=== PATIENT | male | born 1980 | race Caucasian/White ===

== ENCOUNTER 2017-08-11 15:14 | Emergency (ER) | payer OTHER ==
[2017-08-11] MEDS: KETOROLAC TROMETHAMINE 10 MG TAB PO (16:27)
[2017-08-11] MEDS: BACLOFEN 10 MG TAB PO (16:27)
[2017-08-11] MEDS: PERCOCET 5MG/325MG TAB PO (17:27)
== END 2017-08-11 18:09 | disposition home or self-care (01) ==
LOC: M ED 15:14
DX: S39.012A Strain of muscle, fascia and tendon of lower back, initial encounter (principal); X58.XXXA Exposure to other specified factors, initial encounter; Y92.89 Other specified places as the place of occurrence of the external cause; I10 Essential (primary) hypertension; K21.9 Gastro-esophageal reflux disease without esophagitis; Z88.0 Allergy status to penicillin; Z88.1 Allergy status to other antibiotic agents; Z91.040 Latex allergy status; Z91.048 Other nonmedicinal substance allergy status; F17.210 Nicotine dependence, cigarettes, uncomplicated; Z79.899 Other long term (current) drug therapy
CPT/HCPCS: 99283

== ENCOUNTER 2017-10-06 11:56 | Emergency (ER) | payer OTHER ==
[2017-10-06] MEDS: PERCOCET 5MG/325MG TAB PO (12:37)
== END 2017-10-06 14:19 | disposition home or self-care (01) ==
LOC: M ED 11:56
DX: S62.640A Nondisplaced fracture of proximal phalanx of right index finger, initial encounter for closed fracture (principal); Y04.0XXA Assault by unarmed brawl or fight, initial encounter; Y92.89 Other specified places as the place of occurrence of the external cause; Z87.81 Personal history of (healed) traumatic fracture; F17.200 Nicotine dependence, unspecified, uncomplicated
CPT/HCPCS: 73130

== ENCOUNTER 2017-10-22 00:40 | Emergency (ER) | payer OTHER | END 2017-10-22 01:48 | disposition home or self-care (01) | LOC: M ED 00:40 | DX: Z46.89 Encounter for fitting and adjustment of other specified devices (principal); I10 Essential (primary) hypertension; J45.909 Unspecified asthma, uncomplicated; K21.9 Gastro-esophageal reflux disease without esophagitis; F17.210 Nicotine dependence, cigarettes, uncomplicated; Z88.1 Allergy status to other antibiotic agents; Z88.5 Allergy status to narcotic agent; Z88.0 Allergy status to penicillin; Z91.048 Other nonmedicinal substance allergy status; Z88.8 Allergy status to other drugs, medicaments and biological substances; Z79.899 Other long term (current) drug therapy | CPT/HCPCS: 99284 ==

== ENCOUNTER 2017-10-28 17:29 | Emergency (ER) | payer OTHER ==
[2017-10-28] MEDS: NORCO 5/325MG TABLET (BULK FOR ED) PO ×2 (20:45→20:46)
== END 2017-10-28 20:57 | disposition home or self-care (01) ==
LOC: M ED 17:29
DX: S60.221A Contusion of right hand, initial encounter (principal); W19.XXXA Unspecified fall, initial encounter; Y92.099 Unspecified place in other non-institutional residence as the place of occurrence of the external cause; Y93.9 Activity, unspecified; Y99.9 Unspecified external cause status; Z96.9 Presence of functional implant, unspecified; I10 Essential (primary) hypertension; K21.9 Gastro-esophageal reflux disease without esophagitis; J45.909 Unspecified asthma, uncomplicated; Z79.899 Other long term (current) drug therapy; Z88.5 Allergy status to narcotic agent; Z88.0 Allergy status to penicillin; Z88.8 Allergy status to other drugs, medicaments and biological substances; Z91.89 Other specified personal risk factors, not elsewhere classified; Z91.040 Latex allergy status
CPT/HCPCS: 73130

== ENCOUNTER 2017-10-31 14:01 | Emergency (ER) | payer OTHER | END 2017-10-31 15:24 | disposition home or self-care (01) | LOC: M ED 14:01 | DX: G89.18 Other acute postprocedural pain (principal); I10 Essential (primary) hypertension; J45.909 Unspecified asthma, uncomplicated; K21.9 Gastro-esophageal reflux disease without esophagitis; Z88.8 Allergy status to other drugs, medicaments and biological substances; Z88.1 Allergy status to other antibiotic agents; Z88.5 Allergy status to narcotic agent; Z88.0 Allergy status to penicillin; Z91.040 Latex allergy status; Z91.048 Other nonmedicinal substance allergy status; Z79.899 Other long term (current) drug therapy | CPT/HCPCS: 99282 ==

== ENCOUNTER 2017-11-05 14:24 | Emergency (ER) | payer OTHER | END 2017-11-05 17:21 | disposition home or self-care (01) | LOC: M ED 14:24 | DX: S62.610A Displaced fracture of proximal phalanx of right index finger, initial encounter for closed fracture (principal); S62.604A Fracture of unspecified phalanx of right ring finger, initial encounter for closed fracture; Y04.8XXA Assault by other bodily force, initial encounter; Y92.018 Other place in single-family (private) house as the place of occurrence of the external cause; I10 Essential (primary) hypertension; J45.909 Unspecified asthma, uncomplicated | CPT/HCPCS: 99283 ==

== ENCOUNTER 2017-11-07 18:09 | Emergency (ER) | payer OTHER | END 2017-11-07 19:42 | disposition left against medical advice (07) | LOC: M ED 18:09 | DX: Z53.29 Procedure and treatment not carried out because of patient's decision for other reasons (principal) ==

== ENCOUNTER → 2017-12-01 | Outpatient (CLI) | payer OTHER ==
[2017-12-01 13:02] LABS: HEMATOCRIT 45.8 % (42.0-52.0); HEMOGLOBIN 15.5 g/dl (13.5-17.5); MEAN CORPUSCULAR HEMOGLOBIN 29.8 pg (27.0-33.0); MEAN CORPUSCULAR HGB CONC 33.8 g/dl (32.0-36.5); MEAN CORPUSCULAR VOLUME 87.9 fl (80.0-96.0); PLATELET COUNT, AUTOMATED 363 10^3/uL (150-450); RED BLOOD COUNT 5.21 10^6/uL (4.30-6.10); RED CELL DISTRIBUTION WIDTH 14.5 % (11.5-14.5); WHITE BLOOD COUNT 8.8 10^3/uL (4.0-10.0)
[2017-12-01 14:02] LABS: ALBUMIN 3.7 GM/DL (3.2-5.2); ALBUMIN/GLOBULIN RATIO 1.06 (1.00-1.93); ALKALINE PHOSPHATASE 97 U/L (45-117); ALT/SGPT 44 U/L (12-78); ANION GAP 6 MEQ/L (8-16); AST/SGOT 22 U/L (7-37); BILIRUBIN,TOTAL 0.1 MG/DL (0.2-1.0); BLOOD UREA NITROGEN 13 MG/DL (7-18); CALCIUM LEVEL 8.7 MG/DL (8.5-10.1); CARBON DIOXIDE LEVEL 29 MEQ/L (21-32); CHLORIDE LEVEL 104 MEQ/L (98-107); CHOLESTEROL LEVEL 220 MG/DL (<200); CHOLESTEROL RISK RATIO 7.586 (<5); CREATININE FOR GFR 1.09 MG/DL (0.70-1.30); GLOMERULAR FILTRATION RATE > 60.0 (>60); GLUCOSE, FASTING 107 MG/DL (70-100); HDL CHOLESTEROL 29 MG/DL (>40); NON-HDL-C 191 MG/DL; POTASSIUM SERUM 4.9 MEQ/L (3.5-5.1); SODIUM LEVEL 139 MEQ/L (136-145); TOTAL PROTEIN 7.2 GM/DL (6.4-8.2); TRIGLYCERIDES LEVEL 461 MG/DL (<150)
[2017-12-01 14:29] LABS: TOTAL 25(OH) VITAMIN D 12.2 NG/ML (30.0-100.0)
[2017-12-01 16:24] LABS: ESTIMATED AVERAGE GLUCOSE 131 MG/DL (60-110); HEMOGLOBIN A1c 6.2 %
== END ==
LOC: M LAB 11:45
DX: R53.83 Other fatigue (principal); E03.9 Hypothyroidism, unspecified; I10 Essential (primary) hypertension
CPT/HCPCS: 84443

== ENCOUNTER → 2017-12-13 | Outpatient (CLI) | payer OTHER | LOC: M RAD 16:18 | DX: S69.91XA Unspecified injury of right wrist, hand and finger(s), initial encounter (principal); X58.XXXA Exposure to other specified factors, initial encounter; Y92.89 Other specified places as the place of occurrence of the external cause; Z87.81 Personal history of (healed) traumatic fracture | CPT/HCPCS: 73130 ==

== ENCOUNTER 2018-05-10 13:54 | Emergency (ER) | payer OTHER | END 2018-05-10 14:50 | disposition home or self-care (01) | LOC: M ED 13:54 | DX: S02.5XXA Fracture of tooth (traumatic), initial encounter for closed fracture (principal); X58.XXXA Exposure to other specified factors, initial encounter; Y92.9 Unspecified place or not applicable; Y93.89 Activity, other specified; Y99.9 Unspecified external cause status; K21.9 Gastro-esophageal reflux disease without esophagitis; M54.9 Dorsalgia, unspecified; J45.909 Unspecified asthma, uncomplicated; I10 Essential (primary) hypertension; Z79.899 Other long term (current) drug therapy; Z88.1 Allergy status to other antibiotic agents; Z88.5 Allergy status to narcotic agent; Z88.0 Allergy status to penicillin; Z88.8 Allergy status to other drugs, medicaments and biological substances; Z91.89 Other specified personal risk factors, not elsewhere classified | CPT/HCPCS: 99282 ==

== ENCOUNTER 2018-07-17 15:47 | Emergency (ER) | payer OTHER ==
[~2018-07-17] VITALS: Ht 182.9 cm; Wt 90.9 kg
[~2018-07-17 15:47] MED LIST: /ESOM40CA OR; ADDE10CA3 OR; AMLO10TA5 PO; CATA0.1T OR; CIPR0.3S OU; CLEO300C2 PO; COMBAER6 INH; CYCL10TA PO; EXCETAB80 PO; IBUP-1114 PO; IBUP-359 PO; KEFL500C17 PO; LOPR1TAB6 PO; MAGICMW MT; NORCOTAB PO; OMEP20CA3; OMEP40CA2 PO; OXYC1TAB23 PO; PERC5TAB12 PO; PERCOCET PO; PROBCAP4 PO; TRAM50TA2 OR; VITA100067 PO; ZITHTAB PO
[2018-07-17 15:50] VITALS: BP 152/99
[2018-07-17] MEDS ORDERED: OXAY1TAB (15:57)
[2018-07-17] MEDS ORDERED: ADDE20CA3 PO (15:57)
[2018-07-17] MEDS ORDERED: METO1TAB32 (15:58)
[2018-07-17] MEDS ORDERED: FLAG500T PO (16:20)
== END 2018-07-17 16:30 | disposition home or self-care (01) ==
LOC: M ED 15:47
DX: S02.5XXA Fracture of tooth (traumatic), initial encounter for closed fracture (principal); X58.XXXA Exposure to other specified factors, initial encounter; Y92.89 Other specified places as the place of occurrence of the external cause

== ENCOUNTER 2018-10-05 17:33 | Emergency (ER) | payer OTHER, SELFPAY ==
[~2018-10-05] VITALS: Ht 182.9 cm; Wt 90.9 kg
[~2018-10-05 17:33] MED LIST changes: -/ESOM40CA OR; +ADDE20CA3 PO; +FLAG500T PO; +HYDR-3715 PO; +METO1TAB32; +NEXI1CAP3 OR; -NORCOTAB PO; +OXAY1TAB
[2018-10-05 17:34] VITALS: BP 153/102
[2018-10-05] MEDS ORDERED: HYDR-4517 PO (18:06)
[2018-10-05] MEDS ORDERED: CLONI1TA PO (18:10)
[2018-10-05] MEDS ORDERED: KETO10TAB PO (18:10)
--- NOTE | 2018-10-05 19:01 | REP ---
Left hand series: Four views. History: Injury. Suspect glass. Findings: Four views of the left hand demonstrate a shard like foreign body in the superficial soft tissues at the ulnar aspect of the fifth MCP joint. This measures 5 mm in greatest diameter and is compatible with a shard of glass. No soft tissue gas is seen. No acute fracture is noted. There is an old healed boxer's fracture of the fifth metacarpal. A small exostosis is seen arising from the volar aspect of the proximal end of the second metacarpal. There is a small subcortical cyst in the distal end of the third metacarpal. Impression: 5 mm shard like opaque foreign body at the ulnar aspect of the fifth MCP joint consistent with a shard of glass. No fracture seen. Electronically Signed by Kraig Vázquez MD 10/05/2018 07:10 P
== END 2018-10-05 20:00 | disposition left against medical advice (07) ==
LOC: M ED 17:33
DX: S60.552A Superficial foreign body of left hand, initial encounter (principal); X58.XXXA Exposure to other specified factors, initial encounter; Y92.9 Unspecified place or not applicable; Y93.9 Activity, unspecified; Y99.9 Unspecified external cause status; Z53.21 Procedure and treatment not carried out due to patient leaving prior to being seen by health care provider

== ENCOUNTER → 2019-07-17 | Outpatient (CLI) | payer MEDICAID ==
[~2019-07-17] MED LIST changes: +CLONI1TA PO; +HYDR-4517 PO; +KETO10TAB PO; +OMEP1CAP73; -OMEP20CA3; -OMEP40CA2 PO; +OMEP40CA97 PO
== END ==
LOC: M WUC 17:05
PROVIDERS: ATTEND Psychiatry & Neurology Addiction Medicine
DX: F15.20 Other stimulant dependence, uncomplicated (principal); F12.10 Cannabis abuse, uncomplicated

== ENCOUNTER → 2019-07-17 | Outpatient (CLI) | payer MEDICAID | LOC: M OUTALCOH 07:58 | PROVIDERS: ATTEND Psychiatry & Neurology Addiction Medicine | DX: F15.20 Other stimulant dependence, uncomplicated (principal); F12.10 Cannabis abuse, uncomplicated ==

== ENCOUNTER 2019-07-25 02:11 | Emergency (ER) | payer MEDICAID, OTHER ==
[~2019-07-25] VITALS: Ht 182.9 cm; Wt 102.0 kg
[2019-07-25 02:24] VITALS: BP 160/106
[2019-07-25 02:40] LABS: HEMATOCRIT 48.9 % (42.0-52.0); MEAN CORPUSCULAR HEMOGLOBIN 27.9 pg (27.0-33.0); MEAN CORPUSCULAR HGB CONC 32.7 g/dl (32.0-36.5); MEAN CORPUSCULAR VOLUME 85.2 fl (80.0-96.0); PLATELET COUNT, AUTOMATED 374 10^3/uL (150-450); RED BLOOD COUNT 5.74 10^6/uL (4.30-6.10); WHITE BLOOD COUNT 10.2 10^3/uL (4.0-10.0)
[2019-07-25] MEDS ORDERED: OMEP-221 (02:46)
[2019-07-25] MEDS ORDERED: GI COCKTAIL 50ML BTL(HYOSCYAMINE/MAALOX/LIDOCAINE VISCOUS)(1:3:1) PO ONE (03:00)
[2019-07-25 03:05] LABS: AMPHETAMINES LEVEL URINE POSITIVE (NEGATIVE); BARBITURATES URINE NEGATIVE (NEGATIVE); BENZODIAZEPINES URINE NEGATIVE (NEGATIVE); CANNABINOIDS URINE POSITIVE (NEGATIVE); COCAINE METABOLITE URINE NEGATIVE (NEGATIVE); METHADONE URINE NEGATIVE (NEGATIVE); OPIATES URINE NEGATIVE (NEGATIVE); PHENCYCLIDINE URINE NEGATIVE (NEGATIVE)
[2019-07-25 03:30] LABS: ACETAMINOPHEN LEVEL < 2.0 UG/ML (10.0-30.0); ALBUMIN 4.1 GM/DL (3.2-5.2); ALT/SGPT 45 U/L (12-78); BILIRUBIN,DIRECT 0.2 MG/DL (0.0-0.2); BILIRUBIN,TOTAL 0.5 MG/DL (0.2-1.0); BLOOD UREA NITROGEN 15 MG/DL (7-18); CALCIUM LEVEL 8.9 MG/DL (8.5-10.1); CARBON DIOXIDE LEVEL 26 MEQ/L (21-32); CHLORIDE LEVEL 110 MEQ/L (98-107); CREATININE FOR GFR 1.09 MG/DL (0.70-1.30); ETHYL ALCOHOL (ETHANOL) < 0.003 % (0.000-0.010); GLOMERULAR FILTRATION RATE > 60.0 (>60); GLUCOSE, FASTING 99 MG/DL (70-100); POTASSIUM SERUM 4.2 MEQ/L (3.5-5.1); SALICYLATE LEVEL 3.3 MG/DL (5.0-30.0); SODIUM LEVEL 142 MEQ/L (136-145); THYROID STIMULATING HORMONE 0.393 uIU/ML (0.358-3.740); TOTAL PROTEIN 7.4 GM/DL (6.4-8.2)
== END 2019-07-25 03:45 | disposition home or self-care (01) ==
LOC: M ED 02:11
DX: Z60.9 Problem related to social environment, unspecified (principal); F15.10 Other stimulant abuse, uncomplicated; I10 Essential (primary) hypertension; J45.909 Unspecified asthma, uncomplicated; K21.9 Gastro-esophageal reflux disease without esophagitis; Z79.899 Other long term (current) drug therapy; Z88.0 Allergy status to penicillin; Z88.1 Allergy status to other antibiotic agents; Z88.5 Allergy status to narcotic agent; Z91.040 Latex allergy status; Z91.048 Other nonmedicinal substance allergy status
CPT/HCPCS: 36415; 80048; 80076; 80307; 84443; 85027; 99284; G0480

== ENCOUNTER 2019-09-13 01:26 | Emergency (ER) | payer OTHER ==
[~2019-09-13] VITALS: Ht 182.9 cm; Wt 95.5 kg
[~2019-09-13 01:26] MED LIST changes: +CYCL-707 PO; -CYCL10TA PO; +OMEP-221
[2019-09-13] MEDS ORDERED: cloNIDine 0.1 MG TAB PO ONE (02:00)
[2019-09-13] MEDS ORDERED: METOPROLOL TART 25 MG TABLET PO ONE (02:15)
[2019-09-13] MEDS ORDERED: amLODIPine 10 MG TAB PO ONE (02:15)
--- NOTE | 2019-09-13 02:15 | REPVR ---
PROCEDURE INFORMATION: Exam: XR Left Ankle Exam date and time: 09/13/2019 2:08 AM Age: 39 years old Clinical indication: Other: Pain; Prior surgery; Surgery date: 6+ months TECHNIQUE: Imaging protocol: XR Left ankle. Views: 3 or more views. COMPARISON: No relevant prior studies available. FINDINGS: Bones/joints: Postoperative changes and orthopedic hardware in the talus. Hardware appears intact. No fracture or malalignment. Osteophyte formation in the posterior subtalar joint. Remaining joint spaces are unremarkable. No fracture or malalignment. Soft tissues: Unremarkable. IMPRESSION: 1. No fracture or malalignment. 2. Mild degenerative changes in the posterior subtalar joint and prior ORIF of the talus. Electronically signed by: Alvarez Bethea On 09/13/2019 02:15:09 AM
--- NOTE | 2019-09-13 02:17 | REPVR ---
PROCEDURE INFORMATION: Exam: XR Left Tibia and Fibula Exam date and time: 09/13/2019 2:08 AM Age: 39 years old Clinical indication: Other: Pain; Prior surgery TECHNIQUE: Imaging protocol: XR Left tibia and fibula. Views: 2 views. COMPARISON: No relevant prior studies available. FINDINGS: Bones/joints: No fracture or malalignment. Joint spaces are unremarkable. Postoperative changes in the talus. Hardware appears intact. Soft tissues: Normal. IMPRESSION: No fracture or malalignment. Electronically signed by: Alvarez Bethea On 09/13/2019 02:16:35 AM
[2019-09-13 02:32] VITALS: BP 184/118
[2019-09-13] MEDS ORDERED: IBUPROFEN 600 MG TAB PO ONE (03:00)
[2019-09-13 03:24] VITALS: BP 148/98
== END 2019-09-13 03:35 | disposition home or self-care (01) ==
LOC: M ED 01:26
DX: S93.402A Sprain of unspecified ligament of left ankle, initial encounter (principal); Y92.9 Unspecified place or not applicable; Y93.9 Activity, unspecified; J45.909 Unspecified asthma, uncomplicated; K21.9 Gastro-esophageal reflux disease without esophagitis; F17.200 Nicotine dependence, unspecified, uncomplicated; Z88.0 Allergy status to penicillin; Z88.1 Allergy status to other antibiotic agents; Z88.6 Allergy status to analgesic agent; Z88.8 Allergy status to other drugs, medicaments and biological substances; Z91.040 Latex allergy status; Z91.048 Other nonmedicinal substance allergy status

== ENCOUNTER → 2019-11-16 | Outpatient (CLI) | payer OTHER ==
[~2019-11-16] MED LIST changes: -AMLO10TA5 PO; +AMLO1TAB25 PO; -CIPR0.3S OU; +CIPR0.3S6 OU
[2019-11-16 14:34] LABS: HEMATOCRIT 45.5 % (42.0-52.0); HEMOGLOBIN 14.5 g/dl (13.5-17.5); MEAN CORPUSCULAR HEMOGLOBIN 27.8 pg (27.0-33.0); MEAN CORPUSCULAR HGB CONC 31.9 g/dl (32.0-36.5); MEAN CORPUSCULAR VOLUME 87.3 fl (80.0-96.0); PLATELET COUNT, AUTOMATED 355 10^3/uL (150-450); RED BLOOD COUNT 5.21 10^6/uL (4.30-6.10); WHITE BLOOD COUNT 9.8 10^3/uL (4.0-10.0)
[2019-11-16 14:45] LABS: HEMOGLOBIN A1c 6.7 %
[2019-11-16 14:54] LABS: ALBUMIN 3.7 GM/DL (3.2-5.2); ALT/SGPT 49 U/L (12-78); BILIRUBIN,TOTAL 0.3 MG/DL (0.2-1.0); BLOOD UREA NITROGEN 14 MG/DL (7-18); CALCIUM LEVEL 8.7 MG/DL (8.5-10.1); CARBON DIOXIDE LEVEL 26 MEQ/L (21-32); CHLORIDE LEVEL 107 MEQ/L (98-107); CHOLESTEROL LEVEL 182 MG/DL (<200); CHOLESTEROL RISK RATIO 4.918 (<5); CREATININE FOR GFR 1.27 MG/DL (0.70-1.30); FREE THYROXINE INDEX 2.2 % (1.4-3.8); GLOMERULAR FILTRATION RATE > 60.0 (>60); GLUCOSE, FASTING 106 MG/DL (70-100); HDL CHOLESTEROL 37 MG/DL (>40); LDL CHOLESTEROL 97 MG/DL (<100); NON-HDL-C 145 MG/DL; POTASSIUM SERUM 4.2 MEQ/L (3.5-5.1); SODIUM LEVEL 141 MEQ/L (136-145); T UPTAKE 33 % (33-40); THYROID STIMULATING HORMONE 0.581 uIU/ML (0.358-3.740); THYROXINE (T4) 6.6 UG/DL (4.5-12.0); TOTAL PROTEIN 6.7 GM/DL (6.4-8.2); TRIGLYCERIDES LEVEL 239 MG/DL (<150)
[2019-11-16 14:57] LABS: TOTAL 25(OH) VITAMIN D 22.1 NG/ML (30.0-100.0)
== END ==
LOC: M WUC 11:39
PROVIDERS: ATTEND Nurse Practitioner Psychiatric/Mental Health
DX: F41.9 Anxiety disorder, unspecified (principal)

== ENCOUNTER → 2020-01-11 | Outpatient (REF) | payer OTHER | LOC: M LAB REF 11:50 | PROVIDERS: ATTEND Physician Assistant | DX: L02.512 Cutaneous abscess of left hand (principal) ==

== ENCOUNTER 2021-07-29 18:11 | Emergency (ER) | payer OTHER, SELFPAY ==
[~2021-07-29] VITALS: Ht 182.9 cm; Wt 106.8 kg
[~2021-07-29 18:11] MED LIST changes: -OMEP-221; +OMEP40CA4 PO; +OMEP40CA5; -OMEP40CA97 PO
[2021-07-29 19:17] VITALS: BP 170/107
[2021-07-29] MEDS ORDERED: METO1TAB87 PO (19:29)
== END 2021-07-29 20:06 | disposition home or self-care (01) ==
LOC: M ED 18:11
DX: F43.0 Acute stress reaction (principal); I10 Essential (primary) hypertension; F32.A Depression, unspecified; J45.909 Unspecified asthma, uncomplicated; F17.200 Nicotine dependence, unspecified, uncomplicated; Z88.0 Allergy status to penicillin; Z88.1 Allergy status to other antibiotic agents; Z91.040 Latex allergy status; Z79.899 Other long term (current) drug therapy

== ENCOUNTER 2021-12-28 13:55 | Emergency (ER) | payer OTHER ==
[~2021-12-28] VITALS: Ht 182.9 cm; Wt 106.8 kg
[~2021-12-28 13:55] MED LIST changes: +METO1TAB87 PO
[2021-12-28] MEDS ORDERED: LORazepam 2 MG TAB PO STA (14:20)
[2021-12-28] MEDS ORDERED: ZOLO25TA PO (14:22)
[2021-12-28] MEDS ORDERED: NITROGLYCERIN 0.4 MG SUBL TABLET SL PRN (14:25)
[2021-12-28 14:27] LABS: BASO # 0.1 10^3/uL (0.0-0.2); BASO % 0.9 % (0.0-1.0); EOS # 0.3 10^3/uL (0.0-0.5); EOS % 2.8 % (0.0-3.0); HEMATOCRIT 48.6 % (42.0-52.0); HEMOGLOBIN 15.8 g/dl (13.5-17.5); LYMPH # 2.2 10^3/uL (1.5-5.0); LYMPH % 22.8 % (24.0-44.0); MEAN CORPUSCULAR HEMOGLOBIN 28.2 pg (27.0-33.0); MEAN CORPUSCULAR HGB CONC 32.5 g/dl (32.0-36.5); MEAN CORPUSCULAR VOLUME 86.6 fl (80.0-96.0); MONO # 0.7 10^3/uL (0.0-0.8); MONO % 7.7 % (2.0-8.0); NEUTROPHILS # 6.3 10^3/uL (1.5-8.5); NEUTROPHILS % 65.6 % (36.0-66.0); PLATELET COUNT, AUTOMATED 324 10^3/uL (150-450); RED BLOOD COUNT 5.61 10^6/uL (4.30-6.10); WHITE BLOOD COUNT 9.6 10^3/uL (4.0-10.0)
[2021-12-28 14:30] VITALS: BP 159/103
[2021-12-28 14:55] LABS: MB/CK RELATIVE INDEX 0.96 (< OR =4)
[2021-12-28 15:11] LABS: ALT/SGPT 40 U/L (12-78); BILIRUBIN,DIRECT 0.1 MG/DL (0.0-0.2); BILIRUBIN,TOTAL 0.8 MG/DL (0.2-1.0); BLOOD UREA NITROGEN 15 MG/DL (7-18); CALCIUM LEVEL 9.3 MG/DL (8.5-10.1); CARBON DIOXIDE LEVEL 24 MEQ/L (21-32); CHLORIDE LEVEL 106 MEQ/L (98-107); CREATININE FOR GFR 1.15 MG/DL (0.70-1.30); GLOMERULAR FILTRATION RATE > 60.0 (>60); GLUCOSE, FASTING 115 MG/DL (70-100); LIPASE 57 U/L (73-393); NT-PRO BNP 286 PG/ML (<125); POTASSIUM SERUM 4.5 MEQ/L (3.5-5.1); SODIUM LEVEL 138 MEQ/L (136-145); THYROID STIMULATING HORMONE 0.506 uIU/ML (0.358-3.740); TOTAL PROTEIN 7.5 GM/DL (6.4-8.2)
[2021-12-28 16:04] LABS: CK-MB VALUE MASS 2.1 NG/ML (<3.6); MB/CK RELATIVE INDEX 1.07 (< OR =4)
[2021-12-28 16:46] VITALS: BP 175/109
== END 2021-12-28 17:05 | disposition left against medical advice (07) ==
LOC: EDBD 13:55 → M ED 13:55
DX: R07.9 Chest pain, unspecified (principal); Z53.20 Procedure and treatment not carried out because of patient's decision for unspecified reasons; I10 Essential (primary) hypertension; Z90.89 Acquired absence of other organs; F17.200 Nicotine dependence, unspecified, uncomplicated; Z88.0 Allergy status to penicillin; Z88.1 Allergy status to other antibiotic agents; Z88.5 Allergy status to narcotic agent; Z91.040 Latex allergy status; Z79.899 Other long term (current) drug therapy

== ENCOUNTER 2022-01-03 13:09 | Emergency (ER) | payer OTHER ==
[~2022-01-03 13:09] MED LIST changes: +ZOLO25TA PO
[2022-01-03] MEDS ORDERED: ALBU8.5H (13:32)
[2022-01-03] MEDS ORDERED: SUCR1TAB56 (13:32)
[2022-01-03] MEDS ORDERED: COMBAER6 (13:32)
[2022-01-03] MEDS ORDERED: GI COCKTAIL 50ML BTL(HYOSCYAMINE/MAALOX/LIDOCAINE VISCOUS)(1:3:1) PO ONE (13:45)
[2022-01-03 13:53] LABS: BASO # 0.1 10^3/uL (0.0-0.2); BASO % 0.8 % (0.0-1.0); EOS # 0.3 10^3/uL (0.0-0.5); EOS % 2.8 % (0.0-3.0); HEMATOCRIT 46.3 % (42.0-52.0); HEMOGLOBIN 15.1 g/dl (13.5-17.5); LYMPH # 2.3 10^3/uL (1.5-5.0); LYMPH % 24.4 % (24.0-44.0); MEAN CORPUSCULAR HEMOGLOBIN 28.7 pg (27.0-33.0); MEAN CORPUSCULAR HGB CONC 32.6 g/dl (32.0-36.5); MEAN CORPUSCULAR VOLUME 87.9 fl (80.0-96.0); MONO # 0.9 10^3/uL (0.0-0.8); MONO % 9.1 % (2.0-8.0); NEUTROPHILS # 5.9 10^3/uL (1.5-8.5); NEUTROPHILS % 62.5 % (36.0-66.0); PLATELET COUNT, AUTOMATED 347 10^3/uL (150-450); RED BLOOD COUNT 5.27 10^6/uL (4.30-6.10); WHITE BLOOD COUNT 9.5 10^3/uL (4.0-10.0)
[2022-01-03] MEDS ORDERED: METOPROLOL TART 25 MG TABLET PO ONE (13:55)
[2022-01-03 14:31] LABS: BLOOD UREA NITROGEN 11 MG/DL (7-18); CALCIUM LEVEL 9.2 MG/DL (8.5-10.1); CARBON DIOXIDE LEVEL 26 MEQ/L (21-32); CHLORIDE LEVEL 107 MEQ/L (98-107); CREATININE FOR GFR 1.19 MG/DL (0.70-1.30); GLOMERULAR FILTRATION RATE > 60.0 (>60); GLUCOSE, FASTING 112 MG/DL (70-100); SODIUM LEVEL 138 MEQ/L (136-145)
[2022-01-03 14:36] LABS: CK-MB VALUE MASS 1.9 NG/ML (<3.6); MB/CK RELATIVE INDEX 1.03 (< OR =4)
[2022-01-03] MEDS ORDERED: ISOVUE-370 76% 100ML VIAL As Ordered ONE (14:41)
[2022-01-03 15:44] LABS: MB/CK RELATIVE INDEX 1.26 (< OR =4)
[2022-01-03] MEDS ORDERED: KETOROLAC 30 MG/ML 1ML VIAL IV ONE (16:15)
[2022-01-03 17:00] VITALS: BP 150/106
[2022-01-03] MEDS ORDERED: AMLO1TAB25 PO (17:36)
[2022-01-03] MEDS ORDERED: METO1TAB87 PO (17:36)
[2022-01-03] MEDS ORDERED: OMEP40CA4 PO (17:37)
== END 2022-01-03 17:45 | disposition home or self-care (01) ==
LOC: M ED 13:09
DX: I10 Essential (primary) hypertension (principal); Z79.899 Other long term (current) drug therapy; Z88.0 Allergy status to penicillin; Z88.1 Allergy status to other antibiotic agents; Z88.5 Allergy status to narcotic agent; Z88.8 Allergy status to other drugs, medicaments and biological substances; Z91.048 Other nonmedicinal substance allergy status; F17.200 Nicotine dependence, unspecified, uncomplicated
CPT/HCPCS: 71045; 71275; 80048; 82550; 82553; 85025; 93005; 93041; 96374; 99285; J1885; Q9967

== ENCOUNTER 2022-02-10 19:09 | Emergency (ER) | payer OTHER ==
[~2022-02-10] VITALS: Ht 182.9 cm; Wt 105.0 kg
[~2022-02-10 19:09] MED LIST changes: +ALBU8.5H; +COMBAER6; +SUCR1TAB56
[2022-02-10] MEDS ORDERED: ACETAMINOPHEN 325 MG TAB PO ONE (19:35)
[2022-02-10] MEDS ORDERED: METOPROLOL TART 50 MG TAB PO ONE (19:40)
[2022-02-10] MEDS ORDERED: CHLORTHALIDONE 12.5MG PER 1/2 TABLET PO ONE (19:40)
[2022-02-10] MEDS ORDERED: ALPRAZolam 0.5 MG TAB PO ONE (19:45)
[2022-02-10 19:52] VITALS: BP 147/97
[2022-02-10] MEDS ORDERED: AMLO1TAB25 PO (20:23)
[2022-02-10] MEDS ORDERED: METO1TAB87 PO (20:23)
[2022-02-10 21:00] VITALS: BP 150/93
== END 2022-02-10 21:12 | disposition home or self-care (01) ==
LOC: M ED 19:09
DX: I10 Essential (primary) hypertension (principal); F41.8 Other specified anxiety disorders; Z91.19 Patient's noncompliance with other medical treatment and regimen; J45.909 Unspecified asthma, uncomplicated; F32.A Depression, unspecified; F90.9 Attention-deficit hyperactivity disorder, unspecified type; Z79.899 Other long term (current) drug therapy; Z88.0 Allergy status to penicillin; Z88.1 Allergy status to other antibiotic agents; Z88.5 Allergy status to narcotic agent; Z91.040 Latex allergy status; Z91.048 Other nonmedicinal substance allergy status; F17.200 Nicotine dependence, unspecified, uncomplicated

== ENCOUNTER 2023-03-21 01:37 | Emergency (ER) | payer MEDICAID, OTHER ==
[~2023-03-21] VITALS: Ht 182.9 cm; Wt 119.7 kg
[~2023-03-21 01:37] MED LIST changes: +CIPR0.3S37 OU; -CIPR0.3S6 OU
[2023-03-21] MEDS ORDERED: DOXYCYCLINE HYCLATE 100MG TABLET PO ONE (03:45)
[2023-03-21] MEDS ORDERED: METOPROLOL TART 25 MG TABLET PO ONE (03:50)
[2023-03-21 04:42] VITALS: BP 150/94
[2023-03-21 04:48] LABS: BASO # 0.1 10^3/uL (0.0-0.2); BASO % 0.9 % (0.0-1.0); EOS # 0.5 10^3/uL (0.0-0.5); EOS % 5.6 % (0.0-3.0); HEMATOCRIT 42.1 % (42.0-52.0); HEMOGLOBIN 13.7 g/dl (13.5-17.5); LYMPH # 2.4 10^3/uL (1.5-5.0); LYMPH % 28.3 % (24.0-44.0); MEAN CORPUSCULAR HGB CONC 32.5 g/dl (32.0-36.5); MEAN CORPUSCULAR VOLUME 82.9 fl (80.0-96.0); MONO # 0.9 10^3/uL (0.0-0.8); MONO % 10.1 % (2.0-8.0); NEUTROPHILS # 4.6 10^3/uL (1.5-8.5); NEUTROPHILS % 54.4 % (36.0-66.0); PLATELET COUNT, AUTOMATED 308 10^3/uL (150-450); RED BLOOD COUNT 5.08 10^6/uL (4.30-6.10); WHITE BLOOD COUNT 8.4 10^3/uL (4.0-10.0)
[2023-03-21] MEDS ORDERED: DOXY-443 PO (05:26)
[2023-03-21] MEDS ORDERED: LIDO1CRE2 TOP (05:26)
[2023-03-21 05:58] VITALS: BP 134/84; TEMP 98.1; O2SAT 97
== END 2023-03-21 05:59 | disposition home or self-care (01) ==
LOC: M ED 01:37
DX: L66.2 Folliculitis decalvans (principal); S40.862A Insect bite (nonvenomous) of left upper arm, initial encounter; W57.XXXA Bitten or stung by nonvenomous insect and other nonvenomous arthropods, initial encounter; I10 Essential (primary) hypertension; K21.9 Gastro-esophageal reflux disease without esophagitis; J44.9 Chronic obstructive pulmonary disease, unspecified; F32.A Depression, unspecified; F17.200 Nicotine dependence, unspecified, uncomplicated; Z79.899 Other long term (current) drug therapy; Z88.0 Allergy status to penicillin; Z88.1 Allergy status to other antibiotic agents; Z88.5 Allergy status to narcotic agent; Z88.8 Allergy status to other drugs, medicaments and biological substances; Z91.89 Other specified personal risk factors, not elsewhere classified

== ENCOUNTER 2023-05-20 15:54 | Emergency (ER) | payer MEDICAID, OTHER ==
[~2023-05-20] VITALS: Ht 182.9 cm; Wt 117.6 kg
[~2023-05-20 15:54] MED LIST changes: +DOXY-443 PO; +LIDO1CRE2 TOP
[2023-05-20 15:55] VITALS: BP 176/118; TEMP 99.2; O2SAT 100
[2023-05-20 16:53] LABS: BASO # 0.1 10^3/uL (0.0-0.2); BASO % 0.7 % (0.0-1.0); EOS # 0.5 10^3/uL (0.0-0.5); EOS % 3.5 % (0.0-3.0); HEMATOCRIT 45.2 % (42.0-52.0); HEMOGLOBIN 14.3 g/dl (13.5-17.5); LYMPH # 2.9 10^3/uL (1.5-5.0); LYMPH % 19.9 % (24.0-44.0); MEAN CORPUSCULAR HEMOGLOBIN 26.1 pg (27.0-33.0); MEAN CORPUSCULAR HGB CONC 31.6 g/dl (32.0-36.5); MEAN CORPUSCULAR VOLUME 82.6 fl (80.0-96.0); MONO % 6.6 % (2.0-8.0); NEUTROPHILS # 9.9 10^3/uL (1.5-8.5); PLATELET COUNT, AUTOMATED 369 10^3/uL (150-450); RED BLOOD COUNT 5.47 10^6/uL (4.30-6.10); WHITE BLOOD COUNT 14.7 10^3/uL (4.0-10.0)
[2023-05-20 17:01] LABS: ERYTHROCYTE SEDIMENTATION RATE 38 mm/hr (0-15)
[2023-05-20 17:25] LABS: BLOOD UREA NITROGEN 12 MG/DL (9-23); CALCIUM LEVEL 8.4 MG/DL (8.5-10.1); CARBON DIOXIDE LEVEL 26 MMOL/L (20-31); CHLORIDE LEVEL 106 MMOL/L (98-107); CREATININE FOR GFR 0.94 MG/DL (0.70-1.30); GLOMERULAR FILTRATION RATE > 60.0 (>60); GLUCOSE, FASTING 104 MG/DL (60-100); POTASSIUM SERUM 4.3 MMOL/L (3.5-5.1); SODIUM LEVEL 139 MMOL/L (136-145)
[2023-05-20] MEDS ORDERED: LIDOCAINE 1% MDV 20ML VIAL SC ONE (17:40)
[2023-05-20] MEDS ORDERED: DOXY-443 PO (18:56)
[2023-05-20] MEDS ORDERED: AMLO1TAB25 PO (19:00)
== END 2023-05-20 19:41 | disposition home or self-care (01) ==
LOC: M ED 15:54
DX: L03.011 Cellulitis of right finger (principal); Z76.0 Encounter for issue of repeat prescription; I10 Essential (primary) hypertension; Z88.0 Allergy status to penicillin; Z88.5 Allergy status to narcotic agent; Z88.1 Allergy status to other antibiotic agents; Z88.8 Allergy status to other drugs, medicaments and biological substances; Z91.040 Latex allergy status; F17.200 Nicotine dependence, unspecified, uncomplicated; Z79.899 Other long term (current) drug therapy; Z79.51 Long term (current) use of inhaled steroids
CPT/HCPCS: 10060; 80048; 83605; 85025; 85652; 86140; 87040; 99282; J0665

== ENCOUNTER 2024-05-12 22:02 | Emergency (ER) | payer OTHER ==
[~2024-05-12] VITALS: Ht 182.9 cm; Wt 116.8 kg
[~2024-05-12 22:02] MED LIST changes: +DOXY-441 PO; -DOXY-443 PO; -LIDO1CRE2 TOP; +LIDO4CRE12 TOP
[2024-05-12 22:33] LABS: BASO # 0.1 10^3/uL (0.0-0.2); BASO % 0.9 % (0.0-1.0); EOS # 0.4 10^3/uL (0.0-0.5); HEMOGLOBIN 14.6 g/dl (13.5-17.5); LYMPH # 2.9 10^3/uL (1.5-5.0); LYMPH % 30.5 % (24.0-44.0); MEAN CORPUSCULAR HEMOGLOBIN 27.2 pg (27.0-33.0); MEAN CORPUSCULAR HGB CONC 32.4 g/dl (32.0-36.5); MONO # 0.8 10^3/uL (0.0-0.8); MONO % 8.5 % (2.0-8.0); NEUTROPHILS # 5.3 10^3/uL (1.5-8.5); NEUTROPHILS % 55.6 % (36.0-66.0); PLATELET COUNT, AUTOMATED 267 10^3/uL (150-450); RED BLOOD COUNT 5.36 10^6/uL (4.30-6.10); WHITE BLOOD COUNT 9.5 10^3/uL (4.0-10.0)
[2024-05-12 22:44] LABS: INR 1.07; PROTHROMBIN TIME 14.2 SECONDS (12.5-14.5)
[2024-05-12 23:10] LABS: CK-MB VALUE MASS 2.5 NG/ML (<3.6); LIPASE 26 U/L (12-53)
[2024-05-12 23:12] LABS: ALBUMIN 3.6 G/DL (3.2-5.2); ALKALINE PHOSPHATASE 73 U/L (40-129); ALT/SGPT 31 U/L (7.0-40); AST/SGOT 23 U/L (<34); BILIRUBIN,DIRECT 0.2 MG/DL (<0.4); BILIRUBIN,TOTAL 0.6 MG/DL (0.3-1.2); BLOOD UREA NITROGEN 15 MG/DL (9-23); CALCIUM LEVEL 9.1 MG/DL (8.5-10.1); CARBON DIOXIDE LEVEL 25 MMOL/L (20-31); CHLORIDE LEVEL 107 MMOL/L (98-107); CREATININE FOR GFR 1.11 MG/DL (0.70-1.30); GLOMERULAR FILTRATION RATE > 60.0 (>60); GLUCOSE, FASTING 124 MG/DL (60-100); POTASSIUM SERUM 4.2 MMOL/L (3.5-5.1); SODIUM LEVEL 141 MMOL/L (136-145); TOTAL PROTEIN 6.8 G/DL (5.7-8.2)
[2024-05-12 23:14] LABS: CPK CREATINE PHOSPHOKINASE 213 U/L (46-171); MB/CK RELATIVE INDEX 1.17 (< OR =4)
[2024-05-12] MEDS: ACETAMINOPHEN 325 MG TAB PO ONE (23:20)
[2024-05-12 23:49] VITALS: BP 141/88; TEMP 97.9; O2SAT 96
[2024-05-13] MEDS: IBUPROFEN 800 MG TAB PO ONE (00:17)
== END 2024-05-13 00:20 | disposition home or self-care (01) ==
LOC: M ED 22:02
DX: R07.89 Other chest pain (principal); R00.0 Tachycardia, unspecified; I25.2 Old myocardial infarction; I11.0 Hypertensive heart disease with heart failure; G40.909 Epilepsy, unspecified, not intractable, without status epilepticus; F41.9 Anxiety disorder, unspecified; F15.10 Other stimulant abuse, uncomplicated; Z88.0 Allergy status to penicillin; Z88.1 Allergy status to other antibiotic agents; Z88.5 Allergy status to narcotic agent; Z91.040 Latex allergy status; Z88.8 Allergy status to other drugs, medicaments and biological substances; Z79.51 Long term (current) use of inhaled steroids; Z79.2 Long term (current) use of antibiotics; Z79.899 Other long term (current) drug therapy

== ENCOUNTER 2024-12-08 04:43 | Emergency (ER) | payer OTHER ==
[~2024-12-08] VITALS: Ht 182.9 cm; Wt 120.7 kg
[2024-12-08] MEDS ORDERED: ASPI-226 PO (05:04)
[2024-12-08] MEDS ORDERED: CLOP75TA2 PO (05:04)
[2024-12-08] MEDS ORDERED: JARD1TAB PO (05:04)
[2024-12-08] MEDS ORDERED: NITR0.4S14 SL (05:04)
[2024-12-08] MEDS ORDERED: ENTR1TAB PO (05:04)
[2024-12-08] MEDS ORDERED: ZOLP5TAB PO (05:04)
[2024-12-08] MEDS ORDERED: CARV6.25 PO (05:04)
[2024-12-08] MEDS ORDERED: TERB250T91 PO (05:04)
[2024-12-08] MEDS ORDERED: ATOR40TA75 PO (05:04)
[2024-12-08 05:39] LABS: BASO # 0.1 10^3/uL (0.0-0.2); BASO % 1.2 % (0.0-1.0); EOS # 0.3 10^3/uL (0.0-0.5); EOS % 3.1 % (0.0-3.0); LYMPH # 2.5 10^3/uL (1.5-5.0); LYMPH % 22.6 % (24.0-44.0); MONO # 0.8 10^3/uL (0.0-0.8); MONO % 7.5 % (2.0-8.0); NEUTROPHILS # 7.1 10^3/uL (1.5-8.5); NEUTROPHILS % 64.3 % (36.0-66.0); PLATELET COUNT, AUTOMATED 335 10^3/uL (150-450)
[2024-12-08 05:46] LABS: CK-MB VALUE MASS 3.5 NG/ML (<3.6)
[2024-12-08 05:48] LABS: CPK CREATINE PHOSPHOKINASE 164.0 U/L (46-171); MB/CK RELATIVE INDEX 2.13 (< OR =4)
[2024-12-08 05:49] LABS: ALT/SGPT 26.0 U/L (7.0-40); AST/SGOT 21.0 U/L (<34); CALCIUM LEVEL 9.5 MG/DL (8.5-10.1); CARBON DIOXIDE LEVEL 27.0 MMOL/L (20-31); CHLORIDE LEVEL 106.0 MMOL/L (98-107); CREATININE FOR GFR 1.48 MG/DL (0.70-1.30); GLOMERULAR FILTRATION RATE 58.7 (>60); POTASSIUM SERUM 4.2 MMOL/L (3.5-5.1); SODIUM LEVEL 145.0 MMOL/L (136-145)
[2024-12-08 05:50] LABS: FREE T4 1.3 NG/DL (0.89-1.76)
[2024-12-08] MEDS: NS (Normal Saline) 0.9% 1,000 ML IV ONE (06:23)
[2024-12-08 06:50] LABS: CK-MB VALUE MASS 3.6 NG/ML (<3.6)
[2024-12-08 07:13] LABS: CPK CREATINE PHOSPHOKINASE 166.0 U/L (46-171); MB/CK RELATIVE INDEX 2.16 (< OR =4)
[2024-12-08 08:35] LABS: CK-MB VALUE MASS 3.8 NG/ML (<3.6)
[2024-12-08 08:36] LABS: CPK CREATINE PHOSPHOKINASE 150.0 U/L (46-171); MB/CK RELATIVE INDEX 2.53 (< OR =4)
[2024-12-08] MEDS: LORazepam 1 MG TAB PO ONE (09:19)
[2024-12-08] MEDS: HEPARIN SOD 5000 UNITS/ML 1 ML VIAL/SYRINGE IV ONE (09:21)
[2024-12-08] MEDS: HEPARIN DRIP 25,000 UNITS in IV 1 EA IV SCH (09:22)
[2024-12-08 09:38] LABS: INR 1.1
[2024-12-08 10:16] VITALS: BP 156/87; TEMP 97.3; O2SAT 99
== END 2024-12-08 10:19 | disposition short-term general hospital (02) ==
LOC: M ED 04:43
DX: I21.4 Non-ST elevation (NSTEMI) myocardial infarction (principal); I25.119 Atherosclerotic heart disease of native coronary artery with unspecified angina pectoris; F15.10 Other stimulant abuse, uncomplicated; Z88.0 Allergy status to penicillin; Z88.1 Allergy status to other antibiotic agents; Z88.5 Allergy status to narcotic agent; Z88.8 Allergy status to other drugs, medicaments and biological substances; Z91.040 Latex allergy status; Z79.1 Long term (current) use of non-steroidal anti-inflammatories (NSAID); Z79.51 Long term (current) use of inhaled steroids; Z79.899 Other long term (current) drug therapy

== ENCOUNTER 2025-01-15 14:42 | Emergency (ER) | payer OTHER ==
[~2025-01-15] VITALS: Ht 182.9 cm; Wt 115.4 kg
[~2025-01-15 14:42] MED LIST changes: +ASPI-226 PO; +ATOR40TA75 PO; +CARV6.25 PO; +CLOP75TA2 PO; +ENTR1TAB PO; +JARD1TAB PO; +NITR0.4S14 SL; +TERB250T91 PO; +ZOLP5TAB PO
[2025-01-15 14:44] VITALS: TEMP 97.2
[2025-01-15] MEDS: ACETAMINOPHEN 500 MG TAB PO ONE (15:29)
[2025-01-15 15:54] LABS: ALT/SGPT 31 U/L (7.0-40); AST/SGOT 27 U/L (<34); BASO # 0.1 10^3/uL (0.0-0.2); BASO % 1.1 % (0.0-1.0); CALCIUM LEVEL 9.4 MG/DL (8.5-10.1); CARBON DIOXIDE LEVEL 26 MMOL/L (20-31); CHLORIDE LEVEL 106 MMOL/L (98-107); CK-MB VALUE MASS 1.3 NG/ML (<3.6); CREATININE FOR GFR 1.06 MG/DL (0.70-1.30); EOS # 0.4 10^3/uL (0.0-0.5); EOS % 4.2 % (0.0-3.0); GLOMERULAR FILTRATION RATE 87.7 (>60); LYMPH # 2.0 10^3/uL (1.5-5.0); LYMPH % 21.9 % (24.0-44.0); MONO # 0.8 10^3/uL (0.0-0.8); MONO % 8.5 % (2.0-8.0); NEUTROPHILS # 5.8 10^3/uL (1.5-8.5); NEUTROPHILS % 63.6 % (36.0-66.0); PLATELET COUNT, AUTOMATED 327 10^3/uL (150-450); POTASSIUM SERUM 4.6 MMOL/L (3.5-5.1); SODIUM LEVEL 142 MMOL/L (136-145)
[2025-01-15 16:03] LABS: CPK CREATINE PHOSPHOKINASE 107 U/L (46-171); MB/CK RELATIVE INDEX 1.21 (< OR =4)
[2025-01-15 16:06] LABS: INR 0.97
[2025-01-15 16:56] LABS: CK-MB VALUE MASS 1.7 NG/ML (<3.6)
[2025-01-15 17:01] VITALS: BP 185/89; O2SAT 97
[2025-01-15 17:01] LABS: CPK CREATINE PHOSPHOKINASE 103.0 U/L (46-171); MB/CK RELATIVE INDEX 1.65 (< OR =4)
== END 2025-01-15 17:09 | disposition left against medical advice (07) ==
LOC: M ED 14:42
DX: G44.41 Drug-induced headache, not elsewhere classified, intractable (principal); T46.3X1A Poisoning by coronary vasodilators, accidental (unintentional), initial encounter; Z53.20 Procedure and treatment not carried out because of patient's decision for unspecified reasons; R94.31 Abnormal electrocardiogram [ECG] [EKG]; I25.10 Atherosclerotic heart disease of native coronary artery without angina pectoris; Z88.0 Allergy status to penicillin; Z88.1 Allergy status to other antibiotic agents; Z88.5 Allergy status to narcotic agent; Z88.8 Allergy status to other drugs, medicaments and biological substances; Z91.048 Other nonmedicinal substance allergy status; F17.200 Nicotine dependence, unspecified, uncomplicated; Z79.01 Long term (current) use of anticoagulants; Z79.899 Other long term (current) drug therapy

== ENCOUNTER 2025-03-14 00:10 | Emergency (ER) | payer OTHER ==
[~2025-03-14] VITALS: Ht 182.9 cm; Wt 113.6 kg
[~2025-03-14 00:10] MED LIST changes: -ZOLP5TAB PO; +ZOLP5TAB9 PO
[2025-03-14 01:10] LABS: BASO # 0.1 10^3/uL (0.0-0.2); BASO % 1.2 % (0.0-1.0); EOS # 0.5 10^3/uL (0.0-0.5); EOS % 8.0 % (0.0-3.0); LYMPH # 2.1 10^3/uL (1.5-5.0); LYMPH % 31.1 % (24.0-44.0); MONO # 0.9 10^3/uL (0.0-0.8); MONO % 13.4 % (2.0-8.0); NEUTROPHILS # 3.0 10^3/uL (1.5-8.5); NEUTROPHILS % 45.8 % (36.0-66.0); PLATELET COUNT, AUTOMATED 245 10^3/uL (150-450)
[2025-03-14 01:23] LABS: INR 1.03
[2025-03-14 01:38] LABS: CK-MB VALUE MASS 2.5 NG/ML (<3.6)
[2025-03-14 01:47] LABS: ALT/SGPT 21.0 U/L (7.0-40); AST/SGOT 20.0 U/L (<34); CALCIUM LEVEL 9.1 MG/DL (8.5-10.1); CARBON DIOXIDE LEVEL 27.0 MMOL/L (20-31); CHLORIDE LEVEL 105.0 MMOL/L (98-107); CPK CREATINE PHOSPHOKINASE 265.0 U/L (46-171); CREATININE FOR GFR 1.06 MG/DL (0.70-1.30); GLOMERULAR FILTRATION RATE 87.1 (>60); MB/CK RELATIVE INDEX 0.94 (< OR =4); POTASSIUM SERUM 4.0 MMOL/L (3.5-5.1); SODIUM LEVEL 143.0 MMOL/L (136-145)
[2025-03-14 02:40] LABS: CK-MB VALUE MASS 2.1 NG/ML (<3.6)
[2025-03-14 02:44] LABS: CPK CREATINE PHOSPHOKINASE 254.0 U/L (46-171); MB/CK RELATIVE INDEX 0.82 (< OR =4)
[2025-03-14 03:03] LABS: ABG BASE EXCESS -0.5 (-2.0-2.0); ABG HCO3 25.0 MMOL/L (22.0-26.0); ABG O2 SATURATION 99.2 % (95.0-99.0); ABG PARTIAL PRESSURE CO2 44.4 mmHg (35.0-45.0); ABG PARTIAL PRESSURE O2 174.4 mmHg (75.0-100.0); ABG STANDARD HCO3 24.1 MMOL/L. (22.0-26.0); ABG TOTAL CO2 26.4 MMOL/L (22.0-29.0); ABG pH (ARTERIAL) 7.369 UNITS (7.350-7.450)
[2025-03-14 03:46] VITALS: BP 130/59; TEMP 96.7; O2SAT 98
== END 2025-03-14 04:01 | disposition home or self-care (01) ==
LOC: M ED 00:10
DX: R07.9 Chest pain, unspecified (principal); I25.119 Atherosclerotic heart disease of native coronary artery with unspecified angina pectoris; Z88.0 Allergy status to penicillin; Z88.1 Allergy status to other antibiotic agents; Z88.5 Allergy status to narcotic agent; Z88.8 Allergy status to other drugs, medicaments and biological substances; Z91.040 Latex allergy status; Z79.51 Long term (current) use of inhaled steroids; Z79.1 Long term (current) use of non-steroidal anti-inflammatories (NSAID); Z79.4 Long term (current) use of insulin; Z79.899 Other long term (current) drug therapy

== ENCOUNTER → 2025-05-21 | Outpatient (CLI) | payer MEDICAID ==
[2025-05-21 13:47] LABS: PLATELET COUNT, AUTOMATED 291 10^3/uL (150-450)
[2025-05-21 14:20] LABS: ALT/SGPT 35 U/L (7.0-40); AST/SGOT 19 U/L (<34); CALCIUM LEVEL 9.0 MG/DL (8.5-10.1); CARBON DIOXIDE LEVEL 33 MMOL/L (20-31); CHLORIDE LEVEL 104 MMOL/L (98-107); CREATININE FOR GFR 1.07 MG/DL (0.70-1.30); GLOMERULAR FILTRATION RATE 86.1 (>60); POTASSIUM SERUM 4.6 MMOL/L (3.5-5.1); SODIUM LEVEL 142 MMOL/L (136-145)
[2025-05-21 14:43] LABS: HIV 1&2 SCREEN NEGATIVE (NEGATIVE)
[2025-05-21 14:52] LABS: HEPATITIS C VIRUS ABY INDEX 0.08 INDEX (<0.8)
[2025-05-21 15:19] LABS: GC DNA AMPLIFICATION NEGATIVE (NEGATIVE)
== END ==
LOC: M WUC 10:57
PROVIDERS: ATTEND Family Medicine
DX: F11.20 Opioid dependence, uncomplicated (principal)
CPT/HCPCS: 36415; 80053; 85027; 86780; 86803; 87340; 87389; 87810; 87850; G0480

== ENCOUNTER → 2025-05-22 | Outpatient (CLI) | payer MEDICAID | LOC: M WUC 09:55 | PROVIDERS: ATTEND Family Medicine | DX: F11.20 Opioid dependence, uncomplicated (principal) | CPT/HCPCS: 36415; G0480 ==